=== PATIENT | female | born 1945 | race American Indian/Alaskan Native ===

== ENCOUNTER 2016-08-08 13:34 | Outpatient (CLI) | payer OTHER ==
--- NOTE | 2016-08-08 15:35 | Mammography Report ---
Bilateral mammogram: Compared to 09/13. CAD study utilized. Findings: Scattered lingular parenchyma bilaterally. Benign calcification left breast. No mass. Benign axillary nodes. Impression: Benign findings. Annual followup recommended. BI-RADS CATEGORY: 2 = Benign ACR BI-RADS MAMMOGRAPHIC CODES: 0 = Needs additional imaging evaluation; 1 = Negative; 2 = Benign; 3 = Probably benign; 4 = Suspicious; 5 = Malignant; 6 = Known biopsy-proven malignancy COMMENT: 1. Dense breast tissue, i.e., adenosis, fibrocystic changes, etc., may obscure an underlying neoplasm. 2. Approximately 10% of cancers are not detected with mammography. 3. A negative mammography report should not delay biopsy if a clinically suspicious mass is present. COMMENT: Patient follow-up letters are generated in [employer].
== END 2016-08-08 13:35 | disposition home or self-care (01) ==
LOC: MAMMO 13:34
PROVIDERS: ATTEND Family Medicine
DX: Z12.31 Encounter for screening mammogram for malignant neoplasm of breast (principal)
CPT/HCPCS: 77067; G0202

== ENCOUNTER 2016-09-03 10:18 | Outpatient (CLI) | payer MEDICARE ==
--- NOTE | 2016-09-03 11:36 | Mammography Report ---
BONE DENSITY STUDY: DEFINITIONS: BMD = Bone Mineral Density T-score = BMD related to mean peak bone mass of young adult (mean expressed in Standard Deviation) Z-score = Age matched BMD expressed in SD World Health Organization (WHO) Diagnostic Criteria Normal T-score > -1 SD Osteopenia T-score between -1 and -2.4 SD Osteoporosis T-score -2.5 SD or below FINDINGS: The weighted average BMD of lumbar spine L1-L4 is 0.841 with a T-score of -1.9. The L1 BMD is 0.723 with a T. value score of -2.4. The weighted average BMD of the right hip is 0.714 with a T-score of -1.9. The femoral neck BMD is 0.594 with a T. value score of -2.3. IMPRESSION: The patient's average T-score is diagnostic for osteopenia and average relative risk for fracture. NOTE: BMD is not the only risk factor for fracture; also consider factors such as the patient's age, risk of falling, previous osteoporotic fracture, family history of osteoporotic fractures, current smoker, and low body weight. Stewart's triangle is a region of interest in femur, predominantly of trabecular bone. It is not a true anatomic site, and [facility] does not recommend its use clinically.
== END 2016-09-03 10:19 | disposition home or self-care (01) ==
LOC: MAMMO 10:18
PROVIDERS: ATTEND Family Medicine
DX: M85.88 Other specified disorders of bone density and structure, other site (principal)
CPT/HCPCS: 77080

== ENCOUNTER 2022-02-13 14:15 | Outpatient (CLI) | payer MEDICARE ==
--- NOTE | 2022-02-13 17:06 | XRay Report ---
CHEST 2 VIEWS INDICATION / CLINICAL INFORMATION: J93.9 PUEUMORTHORAX. COMPARISON: None available. FINDINGS: SUPPORT DEVICES: None. HEART / MEDIASTINUM: No significant abnormality. LUNGS / PLEURA: There is a right hydropneumothorax. At the apex, the pneumothorax extends craniocauda lly for 4.6 cm. No acute pulmonary findings. ADDITIONAL FINDINGS: No significant additional findings. IMPRESSION: 1. Right hydropneumothorax as above. Per the sonography technologist at [facility], this pneumothorax is a known finding observed ye sterday after bronchoscopy. I was unsuccessful in reaching any physicians at [facility] or [facility] to report this finding despite multiple attempts. Signer Name: Pasha Lundberg MD Signed: 02/13/2022 5:02 PM Workstation Name: [id number]
== END 2022-02-13 14:16 | disposition home or self-care (01) ==
LOC: XRAY 14:15
DX: J94.2 Hemothorax (principal)
CPT/HCPCS: 71046